=== PATIENT | male | born 1985 | race Caucasian/White ===

== ENCOUNTER 2019-10-31 17:22 | Outpatient (CLI) | payer OTHER ==
--- NOTE | 2019-10-31 18:07 | RAD ---
PA VIEW OF THE CHEST WITH FOUR VIEWS OF THE RIGHT CHEST WALL: 10/31/19 INDICATION: History of vague pain under the right breast for three months. FINDINGS: The lungs are clear. Heart size is normal. No pleural effusion or pneumothorax is demonstrated. No di splaced right sided rib fracture is evident. IMPRESSION: No displaced right sided rib fracture. POS: [facility]
== END 2019-10-31 17:23 | disposition home or self-care (01) ==
LOC: SCSRAD 17:22
PROVIDERS: ATTEND Family Medicine
DX: R10.11 Right upper quadrant pain (principal)